=== PATIENT | female | born 1985 | race African-American/Black ===

== ENCOUNTER → 2020-09-25 | Emergency (ER) | payer SELFPAY ==
[~2020-09-25] VITALS: Ht 170.2 cm; Wt 61.2 kg
[2020-09-25 17:44] VITALS: BP 100/57
--- NOTE | 2020-09-25 18:50 | Emergency Room Report ---
History of Present Illness General Chief Complaint: Complications Present Illness HPI Patient originally presented for abdominal pain and reported . She was not in waiting room when called. I had no interaction with this patient. She left without being seen. 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 I had no interaction with this patient. Last Vital Signs Date Time Temp Pulse Resp B/P (MAP) Pulse Ox O2 Delivery O2 Flow Rate FiO2 09/25/20 17:44 98.2 84 18 100/57 (71) 95 Room Air Disposition: LEFT W/OUT BEING SEEN Condition: Unknown Referrals: NOT CHOSEN IPA/,REFERRING (PCP) Parrish Alegria MD Sep 25, 2020 18:50
== END | disposition left against medical advice (07) ==
LOC: EMR 17:45
DX: O26.892 Other specified pregnancy related conditions, second trimester (principal); R10.31 Right lower quadrant pain; Z3A.00 Weeks of gestation of pregnancy not specified; Z53.21 Procedure and treatment not carried out due to patient leaving prior to being seen by health care provider